=== PATIENT | female | born 1955 | race Caucasian/White ===

== ENCOUNTER 2017-02-01 12:42 | Outpatient (CLI) ==
[2016-08-09 13:16] VITALS: BMI 27.6
--- NOTE | 2017-02-02 08:56 | MAMMO ---
EXAM: Bilateral digital screening mammogram History: Screening Comparison: Bilateral mammogram 09/02/2015 Findings: MLO and CC views of bilateral breasts demonstrate scattered fibroglandular breast parench yma. There are no dominant masses, no suspicious microcalcifications and no architectural distortio ns Impression: Stable negative mammogram. Recommend followup routine screening mammography in 1 year. BIRADS 1
== END 2017-02-01 12:43 | disposition home or self-care (01) ==
LOC: RAD 12:42
PROVIDERS: ATTEND Nurse Practitioner Family
DX: Z12.31 Encounter for screening mammogram for malignant neoplasm of breast (principal)

== ENCOUNTER 2017-02-02 14:03 | Outpatient (CLI) ==
[2016-08-09 13:16] VITALS: BMI 27.6
[2017-02-02 15:16] LABS: BASOPHILS # (AUTO) 0.1 K/uL (0-0.2); BASOPHILS % (AUTO) 1.2 % (0.0-3.0); EOSINOPHILS # (AUTO) 0.3 K/ul (0.0-0.7); EOSINOPHILS % (AUTO) 3.1 % (0.0-7.0); HEMOGLOBIN 15.1 g/dl (12.0-16.0); IMMATURE GRANULOCYTE % (AUTO) 0.5 % (0.0-5.0); LYMPHOCYTES # (AUTO) 3.4 K/uL (0.60-3.4); LYMPHOCYTES % (AUTO) 39.2 (10.0-50.0); MEAN CORPUSCULAR HEMOGLOBIN 30.8 pg (27.0-31.0); MEAN CORPUSCULAR HGB CONC 33.6 (31.8-35.4); MEAN CORPUSCULAR VOLUME 91.8 fl (81.0-99.0); MONOCYTES # (AUTO) 0.6 K/uL (0.4-2.0); MONOCYTES % (AUTO) 6.9 (0-10); NEUTROPHILS # (AUTO) 4.3 K/ul (2.0-6.9); NEUTROPHILS % (AUTO) 49.1; PLATELET COUNT 320 10^3/uL (140-440); WHITE BLOOD COUNT 8.67 K/ul (4.6-10.2)
[2017-02-02 15:54] LABS: ALBUMIN 3.6 g/dL (3.4-5.0); ALBUMIN/GLOBULIN RATIO 1.09; ANION GAP 12.1; BILIRUBIN,TOTAL 0.24 mg/dL (0.00-1.20); BUN/CREATININE RATIO 14.63; CALCIUM 9.2 mg/dL (8.2-10.2); CHOL/HDL RATIO 3.1 (4.5-5.5); CREATININE 0.82 mg/dL (0.60-1.30); POTASSIUM 4.1 mmol/L (3.5-5.10); TOTAL PROTEIN 6.9 g/dL (5.8-8.1)
== END 2017-02-02 14:04 | disposition home or self-care (01) ==
LOC: LAB 14:03
PROVIDERS: ATTEND Nurse Practitioner Family
DX: E78.5 Hyperlipidemia, unspecified (principal); F32.9 Major depressive disorder, single episode, unspecified; I10 Essential (primary) hypertension; Z95.0 Presence of cardiac pacemaker
CPT/HCPCS: 36415; 80053; 80061; 83036; 84443; 85025

== ENCOUNTER 2017-07-25 16:18 | Outpatient (CLI) ==
[2016-08-09 13:16] VITALS: BMI 27.6
[2017-07-25 16:30] LABS: BASOPHILS # (AUTO) 0.1 K/uL (0-0.2); BASOPHILS % (AUTO) 0.7 % (0.0-3.0); EOSINOPHILS # (AUTO) 0.2 K/ul (0.0-0.7); EOSINOPHILS % (AUTO) 2.2 % (0.0-7.0); HEMATOCRIT 43.6 % (37.0-47.0); HEMOGLOBIN 14.7 g/dl (12.0-16.0); IMMATURE GRANULOCYTE % (AUTO) 0.3 % (0.0-5.0); LYMPHOCYTES # (AUTO) 3.3 K/uL (0.60-3.4); LYMPHOCYTES % (AUTO) 34.8 (10.0-50.0); MEAN CORPUSCULAR HEMOGLOBIN 30.6 pg (27.0-31.0); MEAN CORPUSCULAR HGB CONC 33.7 (31.8-35.4); MEAN CORPUSCULAR VOLUME 90.6 fl (81.0-99.0); MONOCYTES # (AUTO) 0.6 K/uL (0.4-2.0); MONOCYTES % (AUTO) 6.4 (0-10); NEUTROPHILS # (AUTO) 5.2 K/ul (2.0-6.9); NEUTROPHILS % (AUTO) 55.6; PLATELET COUNT 287 10^3/uL (140-440); RED BLOOD COUNT 4.81 10^6/ul (4.20-5.40); WHITE BLOOD COUNT 9.38 K/ul (4.6-10.2)
[2017-07-25 17:11] LABS: ALBUMIN 3.9 g/dL (3.4-5.0); ALBUMIN/GLOBULIN RATIO 1.22; BILIRUBIN,TOTAL 0.64 mg/dL (0.00-1.20); BUN/CREATININE RATIO 14.11; CALCIUM 9.8 mg/dL (8.2-10.2); CHOL/HDL RATIO 2.9 (4.5-5.5); CREATININE 0.85 mg/dL (0.60-1.30); TOTAL PROTEIN 7.1 g/dL (5.8-8.1)
== END 2017-07-25 16:19 | disposition home or self-care (01) ==
LOC: LAB 16:18
PROVIDERS: ATTEND Emergency Medicine
DX: E78.5 Hyperlipidemia, unspecified (principal); I10 Essential (primary) hypertension; K44.9 Diaphragmatic hernia without obstruction or gangrene; F32.9 Major depressive disorder, single episode, unspecified; M06.9 Rheumatoid arthritis, unspecified
CPT/HCPCS: 36415; 80053; 80061; 84443; 85025

== ENCOUNTER 2018-01-24 14:43 | Outpatient (CLI) ==
[2016-08-09 13:16] VITALS: BMI 27.6
== END 2018-01-24 14:44 | disposition home or self-care (01) ==
LOC: RHC-LAB 14:43
PROVIDERS: ATTEND Emergency Medicine
DX: E78.5 Hyperlipidemia, unspecified (principal); I10 Essential (primary) hypertension
CPT/HCPCS: 36415; 80053; 80061; 84443; 85025

== ENCOUNTER 2018-05-05 14:39 | Outpatient (CLI) ==
[2016-08-09 13:16] VITALS: BMI 27.6
== END 2018-05-05 14:40 | disposition home or self-care (01) ==
LOC: RHC-LAB 14:39
PROVIDERS: ATTEND Emergency Medicine
DX: E78.5 Hyperlipidemia, unspecified (principal); I10 Essential (primary) hypertension; F32.9 Major depressive disorder, single episode, unspecified
CPT/HCPCS: 36415; 80053; 80061; 80162; 84443; 85025

== ENCOUNTER 2018-05-16 15:33 | Outpatient (CLI) ==
[2016-08-09 13:16] VITALS: BMI 27.6
== END 2018-05-16 15:34 | disposition home or self-care (01) ==
LOC: RHC-LAB 15:33
PROVIDERS: ATTEND Emergency Medicine
DX: T14.8XXA Other injury of unspecified body region, initial encounter (principal); W57.XXXA Bitten or stung by nonvenomous insect and other nonvenomous arthropods, initial encounter
CPT/HCPCS: 36415; 86617

== ENCOUNTER 2018-05-29 15:35 | Outpatient (CLI) ==
[2016-08-09 13:16] VITALS: BMI 27.6
== END 2018-05-29 15:36 | disposition home or self-care (01) ==
LOC: CAR 15:35
PROVIDERS: ATTEND Emergency Medicine
DX: I10 Essential (primary) hypertension (principal)
CPT/HCPCS: 93005; 93010

== ENCOUNTER 2018-09-07 10:24 | Outpatient (CLI) ==
[2016-08-09 13:16] VITALS: BMI 27.6
--- NOTE | 2018-09-08 10:18 | MAMMO ---
EXAM: Bilateral digital screening mammogram (2-D and 3-D) History: Screening Comparison: Bilateral mammogram 02/01/2017 Technique: MLO and CC views of bilateral breasts demonstrate scattered fibroglandular breast parench yma. CAD was reviewed by the radiologist. Tomosynthesis was performed. There are no dominant colt s, no suspicious microcalcifications and no architectural distortions Impression: Stable negative mammogram. Recommend followup routine screening mammography in 1 year. BIRADS 2
== END 2018-09-07 10:25 | disposition home or self-care (01) ==
LOC: RAD 10:24
PROVIDERS: ATTEND Nurse Practitioner Family
DX: Z12.31 Encounter for screening mammogram for malignant neoplasm of breast (principal)
CPT/HCPCS: 77067

== ENCOUNTER 2018-09-07 19:53 | Emergency (ER) ==
[2018-09-07 19:59] VITALS: BP 157/95; TEMP 98.1; BMI 26.7
[2018-09-07] MEDS ORDERED: AUGMENTIN 875-125 MG TAB PO STA (19:59)
--- NOTE | 2018-09-07 20:03 | ED.PDOC ---
General ED Provider: Dr. DYLAN ESTRADA-ER Chief Complaint: Bite Stated Complaint: i got bit by a cat Time Seen by Physician: 20:00 Mode of Arrival: Walk-In Information Source: Patient, Family Exam Limitations: No limitations Primary Care Provider: VEL VALERIO Nursing and Triage Documentation Reviewed and Agree: Yes Does patient meet sepsis criteria?: No System Inflammatory Response Syndrome: Not Applicable Sepsis Protocol: For patient's 13 years and over: Temp is 96.8 and below OR 101 and greater Pulse >90 BPM Resp >20/minute Acutely Altered Mental Status Are patient's symptoms suggestive of a new infection, such as: -Pneumonia -Skin, Soft Tissue -Endocarditis -UTI -Bone, Joint Infection -Implantable Device -Acute Abdominal Infection -Wound Infection -Meningitis -Blood Stream Catheter Infection -Unknown Skin Complaint Exam - Skin/Soft Tissue Complaint/Exam Onset/Duration: 6hrs Symptoms Are: Still present Timing: Constant Initial Severity: Mild Current Severity: Mild Location: right index finger Character: Reports: Swelling, Painful Aggravating: Reports: None Alleviating: Reports: None Associated Signs and Symptoms: Reports: Tenderness Recent Exposure to Others w/Similar Symptoms: No Joint Tenderness Present: No Differential Diagnoses: Cellulitis, Infection Review of Systems - Review Of Systems Constitutional: Reports: No symptoms Eyes: Reports: No symptoms Ears, Nose, Mouth, Throat: Reports: No symptoms Respiratory: Reports: No symptoms Cardiac: Reports: No symptoms GI: Reports: No symptoms : Reports: No symptoms Musculoskeletal: Reports: No symptoms Skin: Reports: Other (noted puncture wound right index finger) Neurological: Reports: No symptoms Endocrine: Reports: No symptoms Hematologic/Lymphatic: Reports: No symptoms All Other Systems: Reviewed and Negative Past Medical History - Past Medical History Previously Healthy: Yes Endocrine: Reports: Hypothyroid, Dyslipidemia Cardiovascular: Reports: Hypertension Respiratory: Reports: COPD Hematological: Reports: None Gastrointestinal: Reports: GERD Genitourinary: Reports: None Neuro/Psych: Reports: None Musculoskeletal: Reports: None Cancer: Reports: None Last Menstrual Period: none - Surgical History General Surgical History: Reports: Hysterectomy - Family History Family History: Reports: Unknown - Social History Smoking Status: Former smoker Hx Substance Use: No Alcohol Screening: None - Immunizations Tetanus Shot up to Date: Yes Physical Exam - Physical Exam Appearance: Well-appearing, No pain distress, Well-nourished Pain Distress: Mild Eyes: JUAN ENT: Ears normal, Nose normal, Oropharynx normal Neck: Supple Respiratory: Airway patent Cardiovascular: RRR GI/: Soft, Nontender, No masses, Bowel sounds normal, No Organomegaly Musculoskeletal: Normal strength Skin: Warm (exam does confirm fang belle on skin of index finger--no laceration or erythema) Neurological: Sensation intact, Motor intact, Reflexes intact, Cranial nerves intact, Alert, Oriented Psychiatric: Affect appropriate, Mood appropriate Critical Care Note - Critical Care Note Total Time (mins): 0 Course - Course Orders, Labs, Meds: Orders Category Date Time Status Wound care [ED WOUND CARE] .ONCE EMERGENCY 09/07/18 19:59 Active Amoxicillin/Potassium Clav [Augmentin 875-125 mg Tab] MEDS 09/07/18 19:59 Discontinued 1 tab PO ONCE STA Medications Discontinued Medications Generic Name Dose Route Start Last Admin Trade Name Freq PRN Reason Stop Dose Admin Amoxicillin/Clavulanate Potassium 1 tab 09/07/18 19:59 Augmentin 875-125 Mg Tab PO 09/07/18 20:00 ONCE STA Vital Signs: Temp Pulse Resp BP Pulse Ox 09/07/18 19:53 98.1 F 78 16 157/95 H 94 L Departure - Departure Time of Disposition: 20:02 Disposition: HOME SELF-CARE Discharge Problem: Cat bite involving extremity Instructions: Animal Bite (ED) Condition: Good Pt referred to PMD for follow-up: Yes IPMP verified?: No Additional Instructions: augmentin 875mg bid x 7 days-0keep wound clean and dry---notify animal control-- return if any worsenig edema or temp over 101---keep elevated on pillows next 1- 2 days Allergies/Adverse Reactions: Allergies No Known Allergies Allergy (Verified 09/07/18 19:59) Home Medications: Ambulatory Orders Aspirin 81 mg PO DAILY 06/19/14 Digoxin [Lanoxin] 250 mcg PO DAILY 06/19/14 Lisinopril 10 mg PO DAILY 08/12/16 Disposition Discussed With: Patient, Family
== END 2018-09-07 20:23 | disposition home or self-care (01) ==
LOC: ED 19:53
DX: S61.250A Open bite of right index finger without damage to nail, initial encounter (principal); W55.01XA Bitten by cat, initial encounter; Z12.31 Encounter for screening mammogram for malignant neoplasm of breast
CPT/HCPCS: 77067; 99282

== ENCOUNTER 2018-09-12 16:12 | Emergency (ER) ==
[2018-09-12 16:20] VITALS: BP 147/99; TEMP 98.2; BMI 26.7
--- NOTE | 2018-09-12 17:38 | ED.PDOC ---
General ED Provider: Dr. DYLAN ROB Chief Complaint: Bite Stated Complaint: Sustained Cat bite rt hand-index finger-several days ago- states she bent down to pet cat thinking it was neighbor's cat but realized that it was stray cat. Was treated in the ER and prescribed augmentin--has taken several doses but states finger is more swollen and painful now--has sl nausea. [ End ] Time Seen by Physician: 17:15 Mode of Arrival: Walk-In Information Source: Patient Exam Limitations: No limitations Primary Care Provider: VEL VALERIO Seen Within Last 72 Hours for Same Complaint By: ED Nursing and Triage Documentation Reviewed and Agree: Yes Does patient meet sepsis criteria?: No System Inflammatory Response Syndrome: Not Applicable Sepsis Protocol: For patient's 13 years and over: Temp is 96.8 and below OR 101 and greater Pulse >90 BPM Resp >20/minute Acutely Altered Mental Status Are patient's symptoms suggestive of a new infection, such as: -Pneumonia -Skin, Soft Tissue -Endocarditis -UTI -Bone, Joint Infection -Implantable Device -Acute Abdominal Infection -Wound Infection -Meningitis -Blood Stream Catheter Infection -Unknown Skin Complaint Exam - Skin/Soft Tissue Complaint/Exam Onset/Duration: 4 days Symptoms Are: Still present Timing: Constant Initial Severity: Severe Current Severity: Moderate Location: Index finger Character: Reports: Swelling (minmal erythrema), Painful Aggravating: Reports: Touch Alleviating: Reports: None Associated Signs and Symptoms: Reports: Tenderness. Denies: Fever, Chills, Itching, Drainage, Bruising, Red streaks, Joint swelling Related History: Reports: Similar episode, Recent trauma (cat bite) Related Surgical History: Reports: None Skin Findings: Present: Other (localized edemal proximal phalynx rt index finger. NO joint involvement) Review of Systems - Review Of Systems Constitutional: Reports: No symptoms Eyes: Reports: No symptoms Ears, Nose, Mouth, Throat: Reports: No symptoms Respiratory: Reports: No symptoms Cardiac: Reports: No symptoms GI: Reports: No symptoms : Reports: No symptoms Musculoskeletal: Reports: No symptoms, Muscle pain, Other (rt index finger swelling ) Skin: Reports: No symptoms Neurological: Reports: No symptoms Endocrine: Reports: No symptoms Hematologic/Lymphatic: Reports: No symptoms All Other Systems: Reviewed and Negative Past Medical History - Past Medical History Previously Healthy: Yes Endocrine: Reports: Hypothyroid, Dyslipidemia Cardiovascular: Reports: Hypertension Respiratory: Reports: COPD Hematological: Reports: None Gastrointestinal: Reports: GERD Genitourinary: Reports: None Neuro/Psych: Reports: None Musculoskeletal: Reports: None Cancer: Reports: None Last Menstrual Period: hysterectomy - Surgical History General Surgical History: Reports: Hysterectomy - Family History Family History: Reports: Unknown - Social History Smoking Status: Former smoker Hx Substance Use: No Alcohol Screening: None Physical Exam - Physical Exam Appearance: Well-appearing Pain Distress: Mild Eyes: JUAN, EOMI, Conjunctiva clear ENT: Ears normal, Nose normal, Oropharynx normal Neck: Supple Respiratory: Airway patent, Breath sounds clear, Breath sounds equal, Respirations nonlabored Cardiovascular: RRR, Pulses normal, No rub, No murmur GI/: Soft, Nontender, No masses, Bowel sounds normal, No Organomegaly Musculoskeletal: Normal strength, ROM intact, No edema, No calf tenderness Skin: Warm, Dry, Normal color Neurological: Sensation intact, Motor intact, Reflexes intact, Cranial nerves intact, Alert, Oriented Critical Care Note - Critical Care Note Total Time (mins): 0 Course - Course Hematology/Chemistry: 09/12/18 18:32 09/12/18 18:32 Orders, Labs, Meds: Lab Review 09/12/18 09/12/18 18:32 18:32 WBC 10.19 RBC 4.98 Hgb 15.4 Hct 46.1 MCV 92.6 MCH 30.9 MCHC 33.4 RDW Coeff of Janay 12.6 Plt Count 264 Immature Gran % (Auto) 0.3 Neut % (Auto) 60.9 Lymph % (Auto) 30.8 Long % (Auto) 5.5 Eos % (Auto) 1.8 Baso % (Auto) 0.7 Immature Gran # (Auto) 0.0 Neut # (Auto) 6.2 Lymph # (Auto) 3.1 Long # (Auto) 0.6 Eos # (Auto) 0.2 Baso # (Auto) 0.1 Sodium 138.2 Potassium 4.08 Chloride 99.8 Carbon Dioxide 38.4 H Anion Gap 4.08 BUN 10.7 Creatinine 0.72 Estimated GFR (MDRD) 82.00 BUN/Creatinine Ratio 14.86 Glucose 98.8 Calcium 9.43 Total Bilirubin 0.38 AST 28.0 ALT 16.6 Alkaline Phosphatase 69.3 Total Protein 7.12 Albumin 4.26 Globulin 2.86 Albumin/Globulin Ratio 1.48 Orders Category Date Time Status CBC W/ AUTO DIFF Stat LAB 09/12/18 18:32 Completed CMP [COMPREHENSIVE METABOLIC PANEL] Stat LAB 09/12/18 18:[address] HAND RIGHT WITHOUT CONTRAST Stat RADS 09/12/18 18:13 Completed Vital Signs: Temp Pulse Resp BP Pulse Ox 09/12/18 16:12 98.2 F 72 94 H 147/99 H 94 L Departure - Departure Time of Disposition: 19:00 Disposition: HOME SELF-CARE Discharge Problem: Cat bite of finger, Cellulitis and abscess of finger, unspecified Instructions: Cellulitis (ED) Condition: Good Pt referred to PMD for follow-up: Yes (1 week) IPMP verified?: No Additional Instructions: Continue Augumentin until all are taken Begin Clindamycin as additional therapy Warm water soaks in Epsom salts twice daily Ibuprofen 600 mg 4 times daily for pain and swelling Return to ER if worsens Allergies/Adverse Reactions: Allergies No Known Allergies Allergy (Verified 09/12/18 16:22) Home Medications: Ambulatory Orders Aspirin 81 mg PO DAILY 06/19/14 Digoxin [Lanoxin] 250 mcg PO DAILY 06/19/14 Amoxicillin/Potassium Clav [Augmentin 875-125 mg Tab] 1 tab PO Q12HR 09/12/18 Clindamycin HCl 300 mg PO TID #21 capsule 09/12/18 Disposition Discussed With: Patient, Family
--- NOTE | 2018-09-12 18:46 | CT ---
EXAM: CT brain without intravenous contrast 01/13/2018. Sagittal and coronal reformatted images obt ained HISTORY: Cat bite index finger COMPARISON: None. FINDINGS: There is soft tissue swelling/subcutaneous edema at the level of the second digit. There is no underlying fluid collection. No abscess identified. No acute osseous abnormality. 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 IMPRESSION: Subcutaneous edema of the second digit. No underlying fluid collection. No acute osseo us abnormality.
[2018-09-12] MEDS ORDERED: CLEOCIN PO STA (19:27)
== END 2018-09-12 20:30 | disposition home or self-care (01) ==
LOC: ED 16:12
DX: L03.011 Cellulitis of right finger (principal); L02.511 Cutaneous abscess of right hand; S61.250D Open bite of right index finger without damage to nail, subsequent encounter; W55.01XD Bitten by cat, subsequent encounter
CPT/HCPCS: 36415; 80053; 85025; 99283

== ENCOUNTER 2018-12-19 13:00 | Outpatient (RCR) ==
--- NOTE | 2018-12-08 08:52 | RS.OPPTEV2 ---
Date of Note: 12/07/18 Visit #: 1 Number of visits approved by Insurance: pending Date of Evaluation: 12/07/18 Payer Source: Medicaid Date of Onset/Injury/Change in Status: 11/16/18 Surgery Performed?: No Treatment Diagnosis: closed displaced fracture of middle phalanx of L 5th finger. History of Condition/Mechanism of Injury:: pt suffered a fall causing an injury to L 5th digit. Prior Level of Function.....Patient was independent with: ADL's, Self Care, Caregiving, Ambulation/Mobility, Community Integration/Access Functional Limitations: Self Care, ADL's, Pushing, Pulling, Lifting Current Subjective/complaints:: pt reports she went to [facility] on 11/16/18 and they "popped it back in." States that [facility]. She states that Dr. Benitez took off her splint. Treatment Side (optional): Left *Precautions: n/a Medical History Medical History: Hypertension Medical History Comments:: Pacemaker Surgical History: Cholecystectomy, Hysterectomy Surgical History Comments:: ulnar nerve surgery on L UE. Smoking Status: Current some day smoker Hx Home Medications: [place] 5/325mg prn. Patient's Goals: decrease swelling and pain in L 5th finger. Pain Assessment - Pain Description Pain Location: L 5th finger Pain Description: Aching Current Pain Intensity: 8 Worst Pain Intensity: 10 Functional Outcome Measure UE Functional Index: 20 - G Codes & Severity Modifier G Codes & Modifier: n/a Source of G Code score: n/a Observation - Observation Inspection: pt with edema noted in L 4th and 5th fingers. Posture: Forward Head, Rounded Shoulders, Increased Thoracic Kyphosis Handedness: Right Gait - Gait Pattern General Gait Pattern Observation: No Deviations/Normal General Range of Motion: BUE WFL's except L 4th and 5th fingers. BLE WFL's Muscle Strength: BUE except L hand 4+/5. BLE 5/5 - Left Wrist/Hand ROM Left Hand ROM: L 5th finger MCP 56, PIP 21, DIP 27 - Right Wrist Strength Right Wrist Extension: 4- Good- Right Wrist Flexion: 4- Good- Right Wrist Radial Deviation: 4- Good- Right Wrist Ulnar Deviation: 4- Good- Comments: decreased medical legal investigator not tested due to pain in R 5th finger Palpation Palpation Findings: Tenderness Comments:: tenderness to L 4th and 5th fingers, significant induration noted in L 5th finger. Sensation - Sensation Right Upper Extremity: Intact/Normal Left Upper Extremity: Impaired (reports n/t L hand) Right Lower Extremity: Intact/Normal Left Lower Extremity: Intact/Normal Balance - Sitting Balance Static Sitting Balance: Normal Dynamic Sitting Balance: Normal - Standing Balance Static Standing Balance: Normal Dynamic Standing Balance: Normal - Heat/Cryotherapy Treatment: Cryotherapy Comments:: L hand Interventions - Exercise/Activities/Manual Therapy Exercises/Activities: pt received PROM L 4th and 5th fingers with retrograde massage L hand. pt also performed AAROM L hand. Manual Therapy: Na HOME EXERCISE PROGRAM: pt given written HEP including: AAROM L 5th finger, putty ex, instructed to ice after ex. - Charges Timed Code Treatment Minutes: 51 Total Treatment Time: 59 Procedures billed for this date of service:: eval low, ex EVALUATION COMPLEXITY LEVEL EVALUATION COMPLEXITY LEVEL: HISTORY: Low, EXAM OF BODY SYSTEMS: Low, CLINICAL PRESENTATION: Low, CLINICAL DECISION MAKING: Low Assessment Assessment: pt presents with edema, pain, decreased ROM and strength L 5th finger with decreased medical legal investigator in L hand. Feel pt would benefit from skilled PT for therex for ROM, manual therapy and massage to improve ROM and decrease edema as well as modalities to decrease pain and edema. Patient Education: Home Exercise Program, Education of Plan of Care Rehab Potential: Good Short Term Goals Goal #1: pt independent with initial HEP Goal to be met by: 12/15/18 Goal #2: Decrease edema L 4th and 5th digits Goal to be met by: 12/15/18 Goal #3: pt report decreased pain in L hand <6/10 Goal to be met by: 12/15/18 Goal #4: Improve L 5th digit ROM Goal to be met by: 12/15/18 Associate Brand Manager Goals Goal #1: pt report increased ability to perform normal daily activities Goal to be met by: 12/22/18 Goal #2: pt rate pain L hand <5/10 Goal to be met by: 12/22/18 Goal #3: Improve L 5th digit ROM WFL's Goal to be met by: 12/22/18 Goal #4: . Plan - Treatment to be Provided Procedures: Therapeutic Exercises, Manual Therapy, Massage, Patient Education Modalities: Cryotherapy, Hot Packs - Treatment Plan Frequency: 2 X week Duration: 2 weeks Dates of Associate Brand Manager Goals: 12/22/18 Expiration date of current Insurance Approval:: pending - Treatment Code (1) Finger pain, left Code(s): M79.645 - PAIN IN LEFT FINGER(S) (2) Joint stiffness of hand Qualifiers: Laterality: left Qualified Code(s): M25.642 - Stiffness of left hand, not elsewhere classified (3) Muscle weakness Code(s): M62.81 - MUSCLE WEAKNESS (GENERALIZED) (4) Joint effusion of hand Code(s): M25.449 - EFFUSION, UNSPECIFIED HAND Qualifiers: Laterality: left Qualified Code(s): M25.442 - Effusion, left hand
--- NOTE | 2018-12-12 15:44 | RS.OPPTDN ---
Subjective Date of Note: 12/12/18 Visit #: 2 Number of visits approved by Insurance: 4 Date of Evaluation: 12/07/18 Payer Source: Medicaid Treatment Diagnosis: closed displaced fracture of middle phalanx of L 5th finger. Current Subjective/complaints:: Patient continues to c/o swelling and soreness with motion to the pinky. She says she has been using cold and exercising at home. She says she cannot tell much difference yet. She c/o "hardness" to the pinky where she believes there is floating bone piece causing her pain. She says she is unsure of when or if she has a follow up appt with ortho. *Precautions: n/a - Heat/Cryotherapy Treatment: Cryotherapy (15 mins around the 4th and 5th digits in elevated position after therex) Interventions - Exercise/Activities/Manual Therapy Exercises/Activities: pt received PROM L 4th and 5th fingers for abd/add, flex/ ext. Gentle isometrics for all above x 3 ea. AROM for group abd/add and independent 5th finger flex/ext 2x5. Total minutes of Exercise: 15 Manual Therapy: Retrograde massage for the 4th and 5th digit focusing on the 5th in elevated position. Total minutes of Manual Therapy: 10 HOME EXERCISE PROGRAM: pt given written HEP including: AAROM L 5th finger, putty ex, instructed to ice after ex. - Charges Timed Code Treatment Minutes: 25 Total Treatment Time: 40 Procedures billed for this date of service:: cp, mt, ex Assessment: Patient continues with moderate swelling to the 5th digit limiting flexion mostly, but all motion of the L hand. She has some tenderness with resisted finger add. All other therex sweta well. Patient Education: Education of diagnosis, Body/Joint mechanics, Home Exercise Program, Education of Plan of Care Patient demonstrates compliance with HEP?: Yes Short Term Goals Goal #1: pt independent with initial HEP Goal to be met by: 12/15/18 Goal #2: Decrease edema L 4th and 5th digits Goal to be met by: 12/15/18 Goal #3: pt report decreased pain in L hand <6/10 Goal to be met by: 12/15/18 Goal #4: Improve L 5th digit ROM Goal to be met by: 12/15/18 Retort Load Expediter Goals Goal #1: pt report increased ability to perform normal daily activities Goal to be met by: 12/22/18 Goal #2: pt rate pain L hand <5/10 Goal to be met by: 12/22/18 Goal #3: Improve L 5th digit ROM WFL's Goal to be met by: 12/22/18 Goal #4: . Plan Dates of Usp Goals: 12/22/18 Expiration date of current Insurance Approval:: 12/22/18 PLAN: Patient to continue x 2 more sessions
--- NOTE | 2018-12-14 14:11 | RS.OPPTDN ---
Subjective Date of Note: 12/14/18 Visit #: 3 Number of visits approved by Insurance: 2x2 BREANNA Date of Evaluation: 12/07/18 Payer Source: Medicaid Treatment Diagnosis: closed displaced fracture of middle phalanx of L 5th finger. Current Subjective/complaints:: Patient reports elevated pain to the L 4th and 5th digit running down the ulnar portion of the hand. She also reports pain to the L side of the neck with tightness and decreased motion. She says this was part of her initial injury, but is noticing it hurting more today. She says she is trying to work the hand at home, but sometimes it hurts too bad. Reports it continues to interrupt her sleep. She massages it or moves it (5th digit) around to get back to sleep. *Precautions: n/a Pain Assessment - Pain Description Pain Location: 5th digit, 4th digit along the ulnar side of hand - Heat/Cryotherapy Treatment: Cryotherapy (over the 4th/5th digits and ulnar portion of the hand after therex x 15 mins) Interventions - Exercise/Activities/Manual Therapy Exercises/Activities: pt received PROM L 4th and 5th fingers for abd/add, flex/ ext. Gentle isometrics for all above x 3 ea. Gentle extensor stretch for the 5th digit. AROM for group abd/add and independent 5th finger flex/ext 2x5. Continued with education on diagnosis, anatomy, and perhaps contacting her MD as she only has 1 session remaining and continues with moderate pain level. She is encouraged to continue ice and ROM in elevated position with also trying the hand above her head ROM to further decrease swelling. Total minutes of Exercise: 14 Manual Therapy: Retrograde massage for the 4th and 5th digit focusing on the 5th in elevated position to decrease swelling and improve mobility. Total minutes of Manual Therapy: 13 HOME EXERCISE PROGRAM: pt given written HEP including: AAROM L 5th finger, putty ex, instructed to ice after ex. 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 No change in swelling when compared to evaluation. Patient Education: Education of diagnosis, Education of Plan of Care Patient demonstrates compliance with HEP?: Yes Short Term Goals Goal #1: pt independent with initial HEP Goal to be met by: 12/15/18 Progress towards Goal:: Progressing Goal #2: Decrease edema L 4th and 5th digits Goal to be met by: 12/15/18 Progress towards Goal:: No Change Goal #3: pt report decreased pain in L hand <6/10 Goal to be met by: 12/15/18 Progress towards Goal:: No Change Goal #4: Improve L 5th digit ROM Goal to be met by: 12/15/18 Progress towards Goal:: No Change Long-Term Goals Goal #1: pt report increased ability to perform normal daily activities Goal to be met by: 12/22/18 Comments: Patient primarily uses the dominant (R) hand to complete tasks Goal #2: pt rate pain L hand <5/10 Goal to be met by: 12/22/18 Progress towards goal: No Change Comments: Patient rates heightened pain today Goal #3: Improve L 5th digit ROM WFL's Goal to be met by: 12/22/18 Progress towards goal: No Change Goal #4: . Plan Dates of Long-Term Goals: 12/22/18 Expiration date of current Insurance Approval:: 12/22/18 PLAN: Patient returns to ortho for follow up on 12/18/18.
--- NOTE | 2018-12-22 10:49 | RS.OPPTDN ---
Subjective Date of Note: 12/19/18 Visit #: 4 Number of visits approved by Insurance: 4 Date of Evaluation: 12/07/18 Payer Source: Medicaid Treatment Diagnosis: closed displaced fracture of middle phalanx of L 5th finger. Current Subjective/complaints:: Patient says she had her MD appt yesterday and he recommended to continue with HEP. She says pain seems to be better and swelling is down. Reports she performs most everything (ADLs/housework) using the dominant R hand so she does not have to use the pinky much at all. She says if she bumps it however, it does create pain. Patient and report sensitivity to the cold outside making her finger red, but no reaction from cold pack directly on her hand. *Precautions: n/a Interventions - Exercise/Activities/Manual Therapy Exercises/Activities: Concentration of therex today since it is the final session. [place] received PROM L 4th and 5th fingers for abd/add, flex/ext each along each MCP, PIP and DIP. Gentle isometrics for all above x 3 ea and using isometric elastic ball for extension and then fitness and wellness coordinator 2x5. Gentle extensor stretch for the 5th digit. AROM for group abd/add and independent 5th finger flex/ext 2x5. Yellow tband for group MCP flexion then, MCP, PIP, and DIP 2x5. Yellow 1.5# digiflexor x 8. [employer] Project [employer] tested and measurements taken for ROM. Assisted with UE Functional Index to compare to eval. Provided yellow and red tband to progress to for home. Continued with education on diagnosis, anatomy, and discussed these exercises with as he sat in on the treatment. Total minutes of Exercise: 29 Manual Therapy: na. Instructed for home to prep for D/c HOME EXERCISE PROGRAM: pt given written HEP including: AAROM L 5th finger, putty ex, instructed to ice after ex. - Objective Findings Observations,measurements,etc.: UE Functional Index: 45/80 or 44% impairment. Eval: 20/80 or 75% impairment. Let it be noted however, patient is R hand dominant and primarily performs all needed activities or tasks with this hand or uses digits 1,2,3 of the L hand to assist. - Charges Timed Code Treatment Minutes: 29 Total Treatment Time: 29 Procedures billed for this date of service:: ex2 Assessment: Patient has demo improvement verbally and during presentation showing improved swelling to the L 5th digit and ROM as well as pt voicing increased ability to perform functional activities. She knows and is consistent with HEP at this point. Patient Education: Education of diagnosis, Home Exercise Program, Education of Plan of Care Patient demonstrates compliance with HEP?: Yes Short Term Goals Goal #1: pt independent with initial HEP Goal to be met by: 12/15/18 Progress towards Goal:: Progressing Goal #2: Decrease edema L 4th and 5th digits Goal to be met by: 12/15/18 Progress towards Goal:: Progressing Goal #3: pt report decreased pain in L hand <6/10 Goal to be met by: 12/15/18 Progress towards Goal:: Progressing Goal #4: Improve L 5th digit ROM Goal to be met by: 12/15/18 Progress towards Goal:: Progressing [employer] Goals Goal #1: pt report increased ability to perform normal daily activities Goal to be met by: 12/22/18 Progress towards goal: Progressing Goal #2: pt rate pain L hand <5/10 Goal to be met by: 12/22/18 Progress towards goal: Progressing Goal #3: Improve L 5th digit ROM WFL's Goal to be met by: 12/22/18 Progress towards goal: Progressing Goal #4: . Plan Dates of [employer] Goals: 12/22/18 Expiration date of current Insurance Approval:: 12/22/18 PLAN: Discharge. Completed POC and will continue with HEP.
== END 2018-12-28 23:59 | disposition short-term general hospital (02) ==
PROVIDERS: ATTEND Orthopaedic Surgery
DX: S62.627D Displaced fracture of middle phalanx of left little finger, subsequent encounter for fracture with routine healing (principal); M79.645 Pain in left finger(s); M25.642 Stiffness of left hand, not elsewhere classified; M62.81 Muscle weakness (generalized); M25.442 Effusion, left hand

== ENCOUNTER 2019-02-27 08:07 | Outpatient (CLI) | END 2019-02-27 08:08 | disposition home or self-care (01) | LOC: RHC-LAB 08:07 | PROVIDERS: ATTEND Nurse Practitioner Family | DX: E78.5 Hyperlipidemia, unspecified (principal) | CPT/HCPCS: 36415; 80053; 80061 ==

== ENCOUNTER 2019-04-05 17:45 | Emergency (ER) ==
[2019-04-05 17:55] VITALS: BP 116/77; TEMP 97.8; BMI 25.5
--- NOTE | 2019-04-05 18:07 | ED.PDOC ---
General ED Provider: Dr. HERBER COHN Chief Complaint: Fall Stated Complaint: fall about 1 hr ago from a standing position on a chair. NO L.O.C. Time Seen by Physician: 17:50 (SEEN WITH ANNA) Mode of Arrival: Walk-In Information Source: Patient Exam Limitations: No limitations Primary Care Provider: VEL VALERIO Nursing and Triage Documentation Reviewed and Agree: Yes Does patient meet sepsis criteria?: No System Inflammatory Response Syndrome: Not Applicable Sepsis Protocol: For patient's 13 years and over: Temp is 96.8 and below OR 101 and greater Pulse >90 BPM Resp >20/minute Acutely Altered Mental Status Are patient's symptoms suggestive of a new infection, such as: -Pneumonia -Skin, Soft Tissue -Endocarditis -UTI -Bone, Joint Infection -Implantable Device -Acute Abdominal Infection -Wound Infection -Meningitis -Blood Stream Catheter Infection -Unknown Trauma/Injury Complaint Exam - Head Injury Complaint/Exam Location of Pain: Reports: Scalp, Neck Mechanism of Injury: Reports: Trauma Onset/Duration: 1 HR AGO Symptoms Are: Still present Initial Severity: Moderate Current Severity: Moderate Character: Reports: Dull Aggravating: Reports: None Alleviating: Reports: None Associated Signs and Symptoms: Reports: Neck pain (LIGHT ACHE 2/10 NO NEURO DEFICITS I.E TINGLING , NUMBNESS, MOTOR ISSUES ). Denies: Confusion, Memory loss, Seizure, Epistaxis, Dental malocclusion, Nausea, Vomiting Loss of Consciousness: None SDH Risk Factors: Present: None Cervical Spine Injury Risk Factors: Present: None Related Surgical History: Reports: None Head Injury Findings: Present: Normal findings Glascow Coma Scale (see protocol): 15 Focal Weakness: Present: None Focal Sensory Loss: Present: None Gait: Normal Gag Reflex Present: Yes Finger to Nose: Normal Nexus Low Risk Criteria: No post-midline CS tender, No evidence of intoxicat., No Altered LOC, No focal neuro deficit, No distracting injuries Review of Systems - Review Of Systems Constitutional: Reports: No symptoms Eyes: Reports: No symptoms Ears, Nose, Mouth, Throat: Reports: No symptoms Respiratory: Reports: No symptoms Cardiac: Reports: No symptoms GI: Reports: No symptoms : Reports: No symptoms Musculoskeletal: Reports: Neck pain (DISCOMFORT) Skin: Reports: No symptoms Neurological: Reports: Headache Endocrine: Reports: No symptoms Hematologic/Lymphatic: Reports: No symptoms All Other Systems: Reviewed and Negative Past Medical History - Past Medical History Previously Healthy: Yes Endocrine: Reports: Hypothyroid, Dyslipidemia Cardiovascular: Reports: Hypertension Respiratory: Reports: COPD Hematological: Reports: None Gastrointestinal: Reports: GERD Genitourinary: Reports: None Neuro/Psych: Reports: None Musculoskeletal: Reports: None Cancer: Reports: None Last Menstrual Period: unknown - Surgical History General Surgical History: Reports: Hysterectomy - Family History Family History: Reports: Unknown - Social History Smoking Status: Current some day smoker, Light tobacco smoker Hx Substance Use: No Alcohol Screening: None Physical Exam - Physical Exam Appearance: Well-appearing, No pain distress, Well-nourished Eyes: JUAN, EOMI, Conjunctiva clear ENT: Ears normal, Nose normal, Oropharynx normal Respiratory: Airway patent, Breath sounds clear, Breath sounds equal, Respirations nonlabored Cardiovascular: RRR, Pulses normal, No rub, No murmur GI/: Soft, Nontender, No masses, Bowel sounds normal, No Organomegaly Musculoskeletal: Normal strength, ROM intact, No edema, No calf tenderness Skin: Warm, Dry, Normal color Neurological: Sensation intact, Motor intact, Reflexes intact, Cranial nerves intact, Alert, Oriented Psychiatric: Affect appropriate, Mood appropriate Critical Care Note - Critical Care Note Total Time (mins): 0 Course - Course Orders, Labs, Meds: Orders Category Date Time Status CT CERVICAL SPINE W/O CONTRAST Stat RADS 04/05/19 18:[address] HEAD W/O CONTRAST Stat RADS 04/05/19 18:04 Completed Vital Signs: Temp Pulse Resp BP Pulse Ox 04/05/19 17:46 97.8 F 60 20 116/77 95 Departure - Departure Time of Disposition: 19:00 Disposition: HOME SELF-CARE Discharge Problem: Head injury due to trauma Qualifiers: Encounter type: initial encounter Qualified Code(s): S09.90XA - Unspecified injury of head, initial encounter Sprain, neck Qualifiers: Encounter type: initial encounter Qualified Code(s): S13.9XXA - Sprain of joints and ligaments of unspecified parts of neck, initial encounter Instructions: Cervical Strain (ED), Head Injury (ED) Condition: Good Pt referred to PMD for follow-up: Yes IPMP verified?: No Additional Instructions: Follow up with your PCP as needed. Prescriptions: Hydrocodone/Acetaminophen [[place] 10-325 Tablet] 1 each PO Q8HR #3 tablet Allergies/Adverse Reactions: Allergies No Known Allergies Allergy (Verified 04/05/19 17:56) Home Medications: Ambulatory Orders Aspirin 81 mg PO DAILY 06/19/14 Digoxin [Lanoxin] 250 mcg PO DAILY 06/19/14 Carvedilol 3.125 mg PO BID 11/27/18 Hydrocodone/Acetaminophen [[place] 10-325 Tablet] 1 each PO Q8HR #3 tablet Disposition Discussed With: Patient
--- NOTE | 2019-04-05 18:30 | CT ---
EXAM: CT of the head without contrast. HISTORY: Fall. COMPARISON: 10/22/2014 TECHNIQUE: Contiguous axial images at 5 mm intervals were obtained from the base of the skull to the vertex of the calvarium. No contrast was given. FINDINGS: Extra-axial spaces: The CSF-containing spaces are normal in size and position.There are no extraaxia l fluid collections. Hemorrhage: None Cerebral Parenchyma: There are no areas of abnormal density. Morgan-white differentiation is normal. Cerebellum: Normal. Masses/Mass effect: None. There is no midline shift. Vasculature: Normal. Osseus Structures: Normal. Soft tissues: Normal. IMPRESSION: No acute intracranial abnormality.
--- NOTE | 2019-04-05 18:33 | CT ---
EXAM: CT cervical spine. HISTORY: Fall. COMPARISON: 04/13/2015 TECHNIQUE: Contiguous axial images at 2 mm intervals were obtained from the base of the skull to the thoracic spine. Sagittal and coronal reformats were reviewed. No contrast was given. FINDINGS: There is normal curvature and alignment. Disc heights and vertebral heights are well maint ained. There are no acute or healing fractures. There is stable fragmentation of the posterior aspe ct of the spinous process at C6. There are no lytic or blastic lesions. No significant degenerative changes are seen. No disc bulges are identified. The soft tissues are normal. The airway is widely patent. Limited views of the lung apices are normal. There is no spinal canal or neural foramen narrowing. IMPRESSION: No acute cervical spine abnormality.
== END 2019-04-05 19:15 | disposition home or self-care (01) ==
LOC: ED 17:45
DX: S09.90XA Unspecified injury of head, initial encounter (principal); M54.2 Cervicalgia; W17.89XA Other fall from one level to another, initial encounter; F17.210 Nicotine dependence, cigarettes, uncomplicated
CPT/HCPCS: 99283

== ENCOUNTER 2019-05-22 14:41 | Outpatient (CLI) | END 2019-05-22 14:42 | disposition home or self-care (01) | LOC: LAB 14:41 | PROVIDERS: ATTEND Nurse Practitioner Family | DX: Z51.81 Encounter for therapeutic drug level monitoring (principal); Z79.899 Other long term (current) drug therapy | CPT/HCPCS: 36415; 80162 ==